=== PATIENT | male | born 1945 | race Caucasian/White ===

== ENCOUNTER 2023-07-28 14:50 | Emergency (ER) | payer MEDICARE ==
[2023-07-28 15:22] LABS: BASOPHILS PERCENT AUTO 1.4 % (0.0-1.0); EOSINOPHILS PERCENT AUTO 0.2 % (1.0-3.0); HEMATOCRIT 45.9 % (40.0-54.0); HEMOGLOBIN 16.2 g/dL (14.0-18.0); MEAN CORPUSCULAR HEMOGLOBIN 33.4 pg (27.0-34.0); MEAN CORPUSCULAR HGB CONC 35.3 g/dL (33.0-35.0); MEAN CORPUSCULAR VOLUME 94.6 fL (80-100); MONOCYTES PERCENT AUTO 10.7 % (2-8); NEUTROPHILS PERCENT AUTO 61.7 % (42.2-75.2); PLATELET COUNT,PLT 169 10^3/uL (150-450); RED BLOOD CELL COUNT 4.85 10^6/uL (4.6-6.2); WHITE BLOOD CELL COUNT,WBC 5.6 10^3/uL (5.0-10.0)
[2023-07-28] MEDS: MVI, Adult with Vitamin K 10 ML, Folic Acid 1 MG, Thiamine 100 MG in Lactated Ringers 1... IV ONE (15:28)
[2023-07-28 15:32] LABS: A/G RATIO 1.1; ALANINE AMINOTRANSFERASE,ALT 31 U/L (16-63); ALBUMIN 4.1 g/dL (3.4-5.0); ALKALINE PHOSPHATASE 69 U/L (46-116); ANION GAP 20.3 mEq/L (7-13); ASPARTATE AMNIOTRANSFERASE,AST 38 U/L (15-37); BILIRUBIN TOTAL 1.1 mg/dL (0.2-1.0); BLOOD UREA NITROGEN,BUN 7 mg/dL (7-18); BUN/CREATININE RATIO 9.3 (No establ ref range); CALCIUM 8.9 mg/dL (8.5-10.1); CARBON DIOXIDE,CO2 21 mmol/L (21-32); CHLORIDE,CL 102 mmol/L (98-107); CREATININE 0.75 mg/dL (0.70-1.30); EST CRCL DRUG DOSING (CG) 87.87 mL/min; GLUCOSE RANDOM 130 mg/dL (70-99); LACTATE DEHYDROGENASE,LDH 207 U/L (85-227); MAGNESIUM 1.7 mg/dL (1.8-2.4); PHOSPHORUS 2.1 mg/dL (2.6-4.7); POTASSIUM,K 3.3 mmol/L (3.5-5.1); PROTEIN TOTAL,TP 7.9 g/dL (6.4-8.2); SODIUM,NA 140 mmol/L (136-145)
[2023-07-28] MEDS: Sodium Chloride 0.9% 10 ML Syringe FLUSH PRN (15:32)
[2023-07-28 15:33] LABS: C-REACTIVE PROTEIN < 0.50 ng/dL (<=0.50); ESTIMATED GFR 94 mL/min (>=60)
[2023-07-28] MEDS: Potassium Chloride 10 MEQ Tab.ER PO ONE (16:04)
== END 2023-07-28 17:03 | disposition home or self-care (01) ==
LOC: EDSEX → DL.ED 14:50
DX: R42 Dizziness and giddiness (principal); F10.90 Alcohol use, unspecified, uncomplicated; E87.6 Hypokalemia; E83.42 Hypomagnesemia; I10 Essential (primary) hypertension
CPT/HCPCS: 36415; 80053; 83615; 83735; 84100; 85025; 86140; 93005; 96365; 99284; A9270; J3411; J7120; 93010; J3490